=== PATIENT | male | born 1990 | race Two or more races ===

== ENCOUNTER 2023-01-12 | Outpatient (CLI) | payer OTHER | END 2023-01-12 00:15 | disposition home or self-care (01) | LOC: PPH VACUNA | PROVIDERS: ATTEND Emergency Medicine Pediatric Emergency Medicine | DX: Z23 Encounter for immunization (principal) ==

== ENCOUNTER 2023-01-28 | Outpatient (CLI) | payer OTHER | END 2023-01-28 00:15 | disposition home or self-care (01) | LOC: PPH VACUNA | PROVIDERS: ATTEND Emergency Medicine Pediatric Emergency Medicine | DX: Z23 Encounter for immunization (principal) ==